=== PATIENT | female | born 1965 | race Caucasian/White ===

== ENCOUNTER 2021-01-04 14:48 | Emergency (ER) | payer BC, SELFPAY ==
[2021-01-04 16:17] VITALS: BP 168/77; PULSE 88; RESP 18; TEMP 36.8; O2SAT 99; BMI 34.1
--- NOTE | 2021-01-04 16:23 | HMH.EDUTC ---
[facility] [place] Disposition Clinical Impression: Exposure to COVID-19 virus Pharyngitis Qualifiers: Pharyngitis/tonsillitis etiology: unspecified etiology Qualified Code(s): J02.9 - Acute pharyngitis, unspecified Disposition: Home, Self-Care Condition on Discharge: Good Instructions: DI for Pharyngitis/Tonsillopharyngitis -- Adult, DI for COVID-19 (Suspected or Confirmed ), Preventing the Spread of Coronavirus Discharge Instructions Additional Instructions: Drink plenty of fluids. Take tylenol or ibuprofen for pain or fever. Take the medications as directed. Follow up with your regular doctor. GO TO THE ER FOR ANY WORSENING SYMPTOMS Quarantine until you know the results of your covid-19 test. If it is positive, the health department should call you and give you further instructions about your length of Quarantine and other thing. Prescriptions: Azithromycin [Z-Miles 250mg Tab*] 250 mg PO UD DOSE PK #6 tab Transmission Status: Received by [employer] #[id number] Referrals: Provider,Referral, [Primary Care Provider] - Time of Disposition: 16:37 Medical Decision Making - Medical Records Medical records reviewed: No: I reviewed the patient's medical records. - Montez Inquiry Pt receiving controlled substance: No Vital Signs: 01/04/21 16:17 01/04/21 16:43 Temperature 98.2 F 98.4 F Temperature Source Oral Pulse Rate 88 Pulse Rate [Left] 88 Respiratory Rate 18 18 Blood Pressure 160/79 H Blood Pressure [Right Arm] 168/77 H Blood Pressure Mean [Right Arm] 107 02 Sat by Pulse Oximetry 99 - Lab Data Lab results reviewed: Yes: I reviewed the patient's lab results. Lab Results 01/04/21 16:35: Strep Scn Rapid Clinic Negative Orders (Tests/Meds): ORDERS Category Date Time Status Strep Screen Confirmation Stat Micro 01/04/21 16:35 Received [facility] [place] HPI - General Stated complaint: sore throat,N[place]a Time Seen by Provider: 01/04/21 16:30 Mode of Arrival: Ambulatory Source of Information: Patient Limitations: No Limitations Description of Symptoms (Recalled from Triage Doc. by RN): pt c/o a sore throat and n/v. son has strep. has covid. HEENT Symptoms (Recalled from RN notes): Yes (sore throat) Resp Symptoms (Recalled from RN notes): No Skin Symptoms (Recalled from RN notes): No MS Symptoms (Recalled from RN notes): No Functional Status (Recalled from RN notes): na - History of Present Illness Provider Complaint: She states that she has been exposed to covid-19 and strep throat in her house. Her son has strep throat. Her has covid-19. She has had a sore throat on and off for the past 2 weeks. She denies any fever or chills. She has not been vaccinated against covid-19. - Related Data Previous Rx's Medication Instructions Recorded Azithromycin [Z-Miles 250mg Tab*] 250 mg PO UD DOSE PK #6 tab 01/04/21 Allergies Allergy/AdvReac Type Severity Reaction Status Date / Time INGREDIENT: NO KNOWN - NO Allergy Unknown Uncoded 05/07/17 15:17 KNOWN DRUG ALLERGY - Worker's Comp Is this a Worker's Comp case?: No H History - Hepatitis A Screen Drug use history?: No High risk sexual behaviors?: No History of sexually transmitted infection?: No Currently employed?: No Childcare worker?: No Do you have indoor plumbing?: Yes Do you have electricity?: Yes Attestation statement:: This patient has been screened for Hepatitis A risk factors. I have reviewed the patient's past medical history: Yes ROS Obtained: Yes All systems reviewed & no additional complaints - Constitutional Constitutional: Reports as per HPI - Eyes Eyes: Denies eye discharge - ENT Ears, Nose, Mouth, and Throat: Reports as per HPI - Cardiovascular Cardiovascular: Denies chest pain - Respiratory Respiratory: Denies chest congestion, Reports cough, Denies dyspnea, Denies wheezing Physical Exam - General General appearance: alert, in no apparent distress
[2021-01-04 16:36] LABS: UTC Strep Screen (Rapid) Negative (Negative)
[2021-01-04 16:43] VITALS: BP 160/79; PULSE 88; RESP 18; TEMP 36.9
--- NOTE | 2021-01-05 19:19 | PC.NURSE ---
notified of COVID positive result
== END 2021-01-04 16:44 | disposition home or self-care (01) ==
PROVIDERS: Emergency Provider Nurse Practitioner Family
DX: U07.1 COVID-19 (principal)
CPT/HCPCS: 87880; 99202; G0463; U0003

== ENCOUNTER → 2022-12-19 09:56 | Outpatient (CLI) | payer BC, SELFPAY ==
--- NOTE | 2022-12-19 10:01 | MM_ITS ---
PROCEDURE INFORMATION: Exam: MG Bilateral Screening 3D Mammography Exam date and time: 12/19/2022 9:58 AM Age: 57 years old Clinical indication: Screening examination. Maternal grandmother had breast cancer at age 80. TECHNIQUE: Imaging protocol: Bilateral Screening tomosynthesis and 2D mammography including computer-aided detection (CAD) when performed. COMPARISON: No relevant prior studies available. FINDINGS: MAMMOGRAPHY: Breast composition: The breasts are heterogeneously dense, which may obscure small masses. Mass: None. Architectural distortion: None. Calcifications: No suspicious calcifications. Asymmetric density: Questionable proximally 1.0 cm focal asymmetry in the left lower inner and 9 o'clock, anterior to middle 3rd. Skin thickening: None. Axillary adenopathy: None. IMPRESSION: Comparison to prior mammogram will be most helpful. If this is not provided within 2 weeks, patient will be recalled for left diagnostic mammography with spot compression in CC and MLO and left sonography for questionable left breast focal asymmetries. ASSESSMENT: BI-RADS Category 0: Incomplete- Need Additional Imaging Evaluation and/or Prior Mammograms for Comparison
== END ==
PROVIDERS: PCP Nurse Practitioner Family; Visit Provider Nurse Practitioner Family
DX: Z12.31 Encounter for screening mammogram for malignant neoplasm of breast (principal)
CPT/HCPCS: 77063; 77067

== ENCOUNTER 2023-01-20 09:13 | Emergency (ER) | payer BC, SELFPAY ==
[2023-01-20 09:20] VITALS: BP 151/76; PULSE 71; RESP 20; TEMP 36.8; O2SAT 99; BMI 28.7
[2023-01-20 09:29] VITALS: BP 151/76; PULSE 71; RESP 20; TEMP 36.8; O2SAT 99
--- NOTE | 2023-01-20 09:34 | EXP.UTC ---
Discharge Plan Disposition Patient Disposition: Home, Self-Care Prescriptions Prescriptions: New amoxicillin-pot clavulanate 875-125 mg Tablet 1 tab PO Q12H Qty: 20 0RF Referrals Follow up/Referrals: Sandy Barone APRN [Primary Care Provider] - See instructions Activity Restrictions/Add. Instructions Additional Instructions/Restrictions: Take all antibiotics as prescribed until gone Clinical Impressions Clinical Impression: Tonsillitis Instructions Patient Instructions: DI for Pharyngitis/Tonsillopharyngitis -- Adult Discharge ED Provider: Avis Castellon [facility] [place] HPI General Stated complaint: sore throat, congestion Mode of Arrival: Ambulatory Source of Information: Patient Limitations: No Limitations Time Seen by Provider: 01/20/23 09:34 Description of Symptoms (Recalled from Triage Doc. by RN): PATIENT C/O SORE THROAT AND CONGESTION THAT STARTED LAST NIGHT HEENT Symptoms (Recalled from RN notes): Yes Resp Symptoms (Recalled from RN notes): No Skin Symptoms (Recalled from RN notes): No MS Symptoms (Recalled from RN notes): No Functional Status (Recalled from RN notes): WNL History of Present Illness Provider Complaint: Sore throat, body aches since last night. No fever. Feels awful. Exposed to strep earlier this week. Onset (ago): day(s) (1) Relieving factors: none Exacerbating factors: none Associated symptoms: denies other symptoms Treatments prior to arrival: none Related Data Previous Rx's Medication Instructions Recorded amoxicillin 875 mg-potassium 1 tab PO Q12H #20 tabs 01/20/23 clavulanate 125 mg tablet Allergies Allergy/AdvReac Type Severity Reaction Status Date / Time adhesive Allergy Verified 01/20/23 09:26 latex Allergy Verified 01/20/23 09:26 Worker's Comp Is this a Worker's Comp case?: No [facility] Disclaimer: The information contained in this section may have been updated after the patient was seen, as this information can be updated by other users. Medical History (Updated 01/20/23 @ 09:42 by ALVINA Crow) Migraine Surgical History (Updated 01/20/23 @ 09:28 by Starr Yeh RN) History of appendectomy History of tubal ligation Social History Smoking Status: Never smoker alcohol intake: never current occupational status: employed Travel in the last 8 weeks: None ROS Obtained: Yes All systems reviewed & no additional complaints except as documented Constitutional Constitutional: Reports fatigue and Reports malaise ENT Ears, Nose, Mouth, and Throat: Reports sore throat Endocrine Endocrine: Reports fatigue Physical Exam General General appearance: alert and in no apparent distress Head Head exam: atraumatic, normocephalic and normal inspection Eye Eye exam: Present normal appearance, PERRL and EOMI ENT ENT exam: Present normal exam, normal oropharynx, mucous membranes moist, TM's normal bilaterally and normal external ear exam Expanded ENT Exam Throat exam: Present tonsillar erythema, tonsillomegaly and tonsillar exudate Neck Neck exam: Present normal inspection, full ROM and trachea midline; Absent meningismus or lymphadenopathy Chest Chest inspection: Present normal inspection and symmetric chest wall rise; Absent tenderness Respiratory Respiratory exam: Present normal lung sounds bilaterally; Absent respiratory distress Cardiovascular Cardiovascular exam: Present regular rate and normal rhythm; Absent JVD Extremities Exam Extremities exam: Present normal inspection, full ROM and normal capillary refill; Absent calf tenderness Neurological Exam Neurological exam: Present alert and oriented X3 Psychiatric Psychiatric exam: Present normal affect and normal mood Skin Skin exam: Present warm, dry, intact and normal color Lymphatic Lymphatic Findings: no adenopathy Medical Decision Making Montez Inquiry Pt receiving controlled substance: No Vital Signs: 01/20/23 09:20 01/20/23 09:29 Temperature
[2023-01-20 09:36] LABS: UTC Strep Screen (Rapid) Negative (Negative)
== END 2023-01-20 09:44 | disposition home or self-care (01) ==
PROVIDERS: Emergency Provider Physician Assistant; PCP Nurse Practitioner Family
DX: J03.90 Acute tonsillitis, unspecified (principal); R53.81 Other malaise
CPT/HCPCS: 87880; 99212; 99214; G0463

== ENCOUNTER → 2023-02-04 12:46 | Outpatient (CLI) | payer BC, SELFPAY ==
--- NOTE | 2023-02-04 13:00 | US_ITS ---
PROCEDURE INFORMATION: Exam: US Left Breast, Complete MG Left Diagnostic Breast Tomosynthesis Exam date and time: 02/04/2023 1:22 PM Age: 57 years old Clinical indication: Patient recalled on the basis of a screening mammogram 12/19/2022 for further evaluation of questionable of 1.0 cm focal asymmetry in the left lower inner quadrant, anterior to middle 3rd. TECHNIQUE: Imaging protocol: Complete ultrasound of all four quadrants of the left breast and the retroareolar regions, including ultrasound of the axilla when performed. Left Diagnostic tomosynthesis and 2D mammography including computer-aided detection (CAD) when performed. Unilateral or bilateral exam. COMPARISON: 1. MG MM DIG SCREENING MAMM BI W/CAD 12/19/2022 9:58 AM 2. US BREAST LT COMPLETE 02/04/2023 1:06 PM FINDINGS: MAMMOGRAPHY: Spot compression diagnostic images a demonstrated oval 1.0 cm mass in the central breast, along the retroareolar line in both CC and MLO, middle 3rd. ULTRASOUND: Left sonography, all 4 quadrants, retroareolar and axilla demonstrate at 10 o'clock 4 cm from the nipple, a complicated cyst with thin avascular septations measuring 0.8 x 0.7 x 0.3 cm. At 11 o'clock 2 cm from the nipple, oval hypoechoic avascular mass, which may be a complicated cyst, measuring 1.2 x 0.3 by 0.8 cm. At 11 o'clock 3 cm from the nipple, complicated cyst with thin avascular septations measuring 0.6 x 0.3 by 0.3 cm. Sonographically unremarkable axillary lymph node IMPRESSION: Probably benign mammographic mass which may correlate with the probably benign sonographic finding at 10 o'clock or 11 o'clock. Suggest six-month follow-up left diagnostic mammogram and targeted left sonography unless otherwise clinically indicated. ASSESSMENT: BI-RADS Category 3: Probably benign
== END ==
LOC: RAD 12:47
PROVIDERS: PCP Nurse Practitioner Family; Visit Provider Nurse Practitioner Family
DX: R92.8 Other abnormal and inconclusive findings on diagnostic imaging of breast (principal)
CPT/HCPCS: 76641; 77061; 77065; G0279

== ENCOUNTER 2023-06-01 14:40 | Emergency (ER) | payer BC, SELFPAY ==
[2023-06-01 15:05] VITALS: BP 160/91; PULSE 77; RESP 18; TEMP 36.8; O2SAT 99; BMI 52.2
[2023-06-01 15:10] VITALS: BP 165/76; PULSE 68; RESP 18; TEMP 36.7; O2SAT 98; BMI 27.2
[2023-06-01 15:19] LABS: UTC Strep Screen (Rapid) Negative (Negative)
--- NOTE | 2023-06-01 15:52 | EXP.UTC ---
Discharge Plan Disposition Patient Disposition: Home, Self-Care Condition: Good Prescriptions Prescriptions: New benzonatate 100 mg capsule 100 mg PO TID PRN (Reason: cough) Qty: 30 0RF Referrals Follow up/Referrals: Sandy Barone APRN [Primary Care Provider] - See instructions Activity Restrictions/Add. Instructions Additional Instructions/Restrictions: If symptoms persist or worsen follow up with primary care provider. Clinical Impressions Clinical Impression: Acute upper respiratory infection Instructions Patient Instructions: DI for Viral Upper Respiratory Infection -- Adult Discharge ED Provider: Carrie Kahn [facility] [place] HPI General Stated complaint: white spots on tonsils, st cough Mode of Arrival: Ambulatory Source of Information: Patient Limitations: No Limitations Time Seen by Provider: 06/01/23 15:48 Description of Symptoms (Recalled from Triage Doc. by RN): Pt's symptoms are cough and white spot in throat. HEENT Symptoms (Recalled from RN notes): Yes Resp Symptoms (Recalled from RN notes): No Skin Symptoms (Recalled from RN notes): No MS Symptoms (Recalled from RN notes): No Functional Status (Recalled from RN notes): n/a History of Present Illness Provider Complaint: Pt reports cough and sore throat with white spots on her throat, and runny nose. She has taken Mucinex for her symptoms. Related Data Previous Rx's Medication Instructions Recorded benzonatate 100 mg capsule 100 mg PO TID PRN cough #30 caps 06/01/23 Allergies Allergy/AdvReac Type Severity Reaction Status Date / Time adhesive Allergy Verified 06/01/23 15:32 latex Allergy Verified 06/01/23 15:32 Worker's Comp Is this a Worker's Comp case?: No [facility] Disclaimer: The information contained in this section may have been updated after the patient was seen, as this information can be updated by other users. Medical History (Updated 06/01/23 @ 16:05 by Carrie Kahn APRN) Migraine Surgical History History of appendectomy History of tubal ligation Social History Smoking Status: Never smoker alcohol intake: never current occupational status: employed Travel in the last 8 weeks: None ROS Obtained: Yes All systems reviewed & no additional complaints except as documented Constitutional Constitutional: Reports system reviewed and no additional complaints, except as documented and Reports headache(s) Eyes Eyes: Reports system reviewed and no additional complaints, except as documented ENT Ears, Nose, Mouth, and Throat: Reports system reviewed and no additional complaints, except as documented, Reports headache(s), Reports nasal congestion, Reports nasal discharge and Reports sore throat Cardiovascular Cardiovascular: Reports system reviewed and no additional complaints, except as documented Respiratory Respiratory: Reports system reviewed and no additional complaints, except as documented and Reports non-productive cough Gastrointestinal Gastrointestingal: Reports system reviewed and no additional complaints, except as documented Genitourinary Female Genitourinary: Reports system reviewed and no additional complaints, except as documented Musculoskeletal Musculoskeletal: Reports system reviewed and no additional complaints, except as documented Integumentary/Breasts Skin/Breast: Reports system reviewed and no additional complaints, except as documented Neurologic Neurologic: Reports system reviewed and no additional complaints, except as documented and Reports headache(s) Endocrine Endocrine: Reports system reviewed and no additional complaints, except as documented Hematologic/Lymphatic Henatologic/Lymphatic: Reports system reviewed and no additional complaints, except as documented Allergic/Immunologic Allergic/Immunologic: Reports system reviewed and no additional complaints, except as documented Physical Exam General General appearance: alert and in no apparent distress Head Head exam: atraumatic and normocephalic Eye Eye exam: Present normal appearance Expanded ENT Exam External ear exam: Present normal external inspection Nose exam: Absent sinus tenderness Nasal speculum exam: Bilateral: other (clear drainage) Mouth exam: Present normal external inspection Teeth exam: Present normal inspection Throat exam: Present tonsillar erythema Comment: Tonsil stones present Chest Chest inspection: Present normal inspection and symmetric chest wall rise Respiratory Respiratory exam: Present normal lung sounds bilaterally and respiratory distress Cardiovascular Cardiovascular exam: Present regular rate and normal rhythm Abdominal Exam Abdominal exam: Present soft Extremities Exam Extremities exam: Present normal inspection Back Exam Back exam: Present normal inspection Neurological Exam Neurological exam: Present alert and oriented X3 Psychiatric Psychiatric exam: Present normal affect and normal mood Skin Skin exam: Present warm, dry and intact Lymphatic Lymphatic Findings: no adenopathy Medical Decision Making Montez Inquiry Pt receiving controlled substance: No [facility]z was queried for this patient: No Vital Signs: 06/01/23 15:05 06/01/23 15:10 Temperature 98.2 F 98.1 F Temperature Source Oral Oral Pulse Rate [Right Radial] 77 68 Respiratory Rate 18 18 Blood Pressure [Right Arm] 160/91 H 165/76 H Blood Pressure Mean [Right Arm] 114 105 Blood Pressure Source [Right Arm] Automatic Cuff Automatic Cuff Blood Pressure Position [Right Arm] Sitting Sitting 02 Sat by Pulse Oximetry 99 98 Oxygen Delivery Method Room Air Room Air Lab Data Lab results reviewed: Yes I reviewed the patient's lab results. Lab Results 06/01/23 15:14: Strep Scn Rapid Clinic Negative Orders (Tests/Meds): ORDERS Category Date Time Status Strep Screen Confirmation Stat Micro 06/01/23 15:14 Received
[2023-06-01 16:07] VITALS: BP 165/76; PULSE 68; RESP 18; TEMP 36.7; O2SAT 98
== END 2023-06-01 16:07 | disposition home or self-care (01) ==
PROVIDERS: Emergency Provider Nurse Practitioner Family; PCP Nurse Practitioner Family
DX: R05.9 Cough, unspecified (principal); J06.9 Acute upper respiratory infection, unspecified; R07.0 Pain in throat; R09.81 Nasal congestion; R51.9 Headache, unspecified; B34.9 Viral infection, unspecified
CPT/HCPCS: 87880; 99212; 99214; G0463

== ENCOUNTER 2023-07-14 11:49 | Emergency (ER) | payer BC, SELFPAY ==
[2023-07-14 12:30] VITALS: BP 173/78; PULSE 83; RESP 18; TEMP 37.2; O2SAT 98; BMI 29.5
--- NOTE | 2023-07-14 12:31 | EXP.UTC ---
Discharge Plan Disposition Patient Disposition: Home, Self-Care Condition: Good Prescriptions Prescriptions: New amoxicillin [amoxicillin] 875 mg tablet 875 mg PO Q12H Qty: 20 0RF benzonatate [benzonatate] 100 mg capsule 100 mg PO TIDP PRN (Reason: Cough) Qty: 30 0RF methylprednisolone 4 mg Tablets,Dose Pack 4 mg PO DIRECTED 6 Days Qty: 21 0RF Rx Instructions: Take 1 pack as directed for 6 days No Action benzonatate 100 mg capsule 100 mg PO TID PRN (Reason: cough) Qty: 30 0RF Referrals Follow up/Referrals: Sandy Barone APRN [Primary Care Provider] - See instructions Activity Restrictions/Add. Instructions Additional Instructions/Restrictions: Drink plenty of fluids. Take tylenol or ibuprofen for pain or fever. Take the medications as directed. Follow up with your regular doctor. GO TO THE ER FOR ANY WORSENING SYMPTOMS Clinical Impressions Clinical Impression: Pharyngitis Stand Alone Forms Stand Alone Forms: Work/School Release Instructions Patient Instructions: Strep Throat, DI for Strep Throat Discharge ED Provider: Olegario Sanchez [facility] General Stated complaint: sore throat, cough Time Seen by Provider: 07/14/23 12:30 History of Present Illness Provider Complaint: She states that for the past 2 days she has had sore throat, fever, cough, and malaise. Related Data Previous Rx's Medication Instructions Recorded benzonatate 100 mg capsule 100 mg PO TID PRN cough #30 caps 06/01/23 amoxicillin 875 mg tablet 875 mg PO Q12H #20 tabs 07/14/23 benzonatate 100 mg capsule 100 mg PO TIDP PRN Cough #30 caps 07/14/23 methylprednisolone 4 mg tablets in 4 mg PO DIRECTED 6 days #21 tabs 07/14/23 a dose pack Allergies Allergy/AdvReac Type Severity Reaction Status Date / Time adhesive Allergy Verified 06/01/23 15:32 latex Allergy Verified 06/01/23 15:32 [facility] Disclaimer: The information contained in this section may have been updated after the patient was seen, as this information can be updated by other users. Medical History (Updated 07/14/23 @ 12:50 by Olegario Sanchez APRN) Migraine Surgical History History of appendectomy History of tubal ligation Social History Smoking Status: Never smoker alcohol intake: never current occupational status: employed Travel in the last 8 weeks: None ROS Obtained: Yes All systems reviewed & no additional complaints except as documented Constitutional Constitutional: Reports chills and Reports fever(s) Eyes Eyes: Denies eye discharge ENT Ears, Nose, Mouth, and Throat: Reports as per HPI Cardiovascular Cardiovascular: Denies chest pain Respiratory Respiratory: Denies chest congestion and Reports cough Gastrointestinal Gastrointestingal: Reports nausea; Denies abdominal pain, constipation, cramping, diarrhea or vomiting Musculoskeletal Musculoskeletal: Denies arthralgias Integumentary/Breasts Skin/Breast: Denies rash Neurologic Neurologic: Denies paresthesias Physical Exam General General appearance: alert and in no apparent distress Head Head exam: atraumatic, normocephalic and normal inspection Eye Eye exam: Present normal appearance, PERRL and EOMI ENT ENT exam: Present mucous membranes moist and normal external ear exam Expanded ENT Exam TM/Canal exam: Bilateral TM: erythema and bulging Nose exam: Absent sinus tenderness Mouth exam: Present normal external inspection; Absent drooling Teeth exam: Present normal inspection Throat exam: Present tonsillar erythema, tonsillomegaly and tonsillar exudate Neck Neck exam: Present normal inspection, full ROM and trachea midline; Absent tenderness, meningismus or lymphadenopathy Chest Chest inspection: Present normal inspection and symmetric chest wall rise; Absent tenderness Respiratory Respiratory exam: Present normal lung sounds bilaterally; Absent respiratory distress, wheezes, stridor or accessory muscle use Cardiovascular Cardiovascular exam: Present regular rate and normal rhythm; Absent systolic murmur or diastolic murmur Abdominal Exam Abdominal exam: Present soft and normal bowel sounds; Absent distention, tenderness, guarding, rebound or rigidity Extremities Exam Extremities exam: Present normal inspection and normal capillary refill; Absent calf tenderness Back Exam Back exam: Present normal inspection and full ROM; Absent tenderness, CVA tenderness (R) or CVA tenderness (L) Neurological Exam Neurological exam: Present alert, oriented X3 and CN II-XII intact Psychiatric Psychiatric exam: Present normal affect and normal mood Skin Skin exam: Present warm, dry, intact and normal color Medical Decision Making Medical Records Medical records reviewed: No I reviewed the patient's medical records. [place]z Inquiry Pt receiving controlled substance: No Lab Data Lab results reviewed: Yes I reviewed the patient's lab results.
[2023-07-14 12:56] LABS: UTC Strep Screen (Rapid) Positive (Negative)
[2023-07-14 13:17] VITALS: BP 173/78; PULSE 83; RESP 18; TEMP 37.2; O2SAT 98
== END 2023-07-14 13:17 | disposition home or self-care (01) ==
PROVIDERS: Emergency Provider Nurse Practitioner Family; PCP Nurse Practitioner Family
DX: J02.0 Streptococcal pharyngitis (principal); R07.0 Pain in throat; R50.9 Fever, unspecified; R05.9 Cough, unspecified
CPT/HCPCS: 87880; 99212; 99214; G0463

== ENCOUNTER 2023-08-14 15:50 | Outpatient (CLI) | payer BC, SELFPAY ==
--- NOTE | 2023-08-14 15:55 | MM_ITS ---
PROCEDURE INFORMATION: Exam: US Left Breast, Complete MG Left Diagnostic Breast Tomosynthesis Exam date and time: 08/14/2023 4:01 PM Age: 57 years old Clinical indication: Short-term radiographic followup; Left breast; mass and probable cystic change TECHNIQUE: Imaging protocol: Complete ultrasound of all four quadrants of the left breast and the retroareolar regions, including ultrasound of the axilla when performed. Left Diagnostic tomosynthesis and 2D mammography including computer-aided detection (CAD) when performed. Unilateral or bilateral exam. COMPARISON: US BREAST LT COMPLETE 02/04/2023 1:06 PM FINDINGS: MAMMOGRAPHY: Breast composition: There are scattered areas of fibroglandular density. Breast mammogram findings: Digital diagnostic spot compression views of the left breast and 90 degree lateral view of the left breast demonstrate normal overlapping fibroglandular structures without persistent mass or asymmetry identified. ULTRASOUND: Breast ultrasound findings: Sonographic images of the left breast including the retroareolar region, all 4 quadrants and the axilla do not demonstrate any solid masses. Stable subcentimeter cystic change in the 10 o'clock axis 4 cm from the nipple. Stable hypoechoic mass versus debris-filled cyst in the left 11 o'clock axis 6 cm from the nipple measuring 1.4 x 0.4 x 0.9 cm. Additional subcentimeter cystic change in the left 11 o'clock axis 3 cm from the nipple and 11 o'clock axis 4 cm from the nipple No architectural distortion or acoustical shadowing. No skin thickening or axillary adenopathy. IMPRESSION: No persistent left central breast mass on mammography. Stable probably benign hypoechoic mass in the left 11 o'clock axis 2 cm from the nipple compared to prior sonogram dated 02/04/2023. A six-month follow-up targeted left breast ultrasound is recommended for continued close surveillance. The patient is also due at that time for annual bilateral mammographic screening ASSESSMENT: BI-RADS Category 3: Probably benign.
== END 2023-08-14 23:59 ==
LOC: RAD 15:50
PROVIDERS: PCP Nurse Practitioner Family; Visit Provider Nurse Practitioner Family
DX: R92.8 Other abnormal and inconclusive findings on diagnostic imaging of breast (principal)
CPT/HCPCS: 76641; 77061; 77065; G0279

== ENCOUNTER 2024-03-17 15:30 | Outpatient (CLI) | payer BC, SELFPAY ==
--- NOTE | 2024-03-17 15:35 | US_ITS ---
PROCEDURE INFORMATION: Exam: US Left Breast, Complete MG Bilateral Screening 3D Mammography Exam date and time: 03/17/2024 3:29 PM Age: 58 years old Clinical indication: Screening and six-month follow-up sonography for probably benign mass on the left at 11 o'clock 2 cm from the nipple initiated 02/04/2023. Her maternal grandmother had breast cancer at age 80. TECHNIQUE: Imaging protocol: Complete ultrasound of all four quadrants of the left breast and the retroareolar regions, including ultrasound of the axilla when performed. Bilateral Screening tomosynthesis and 2D mammography including computer-aided detection (CAD) when performed. COMPARISON: MG MM DIG MAMM DX UNILAT LT CAD 08/14/2023 4:02 PM MG MM DIG MAMM DX UNILAT LT CAD 02/04/2023 1:22 PM MG MM DIG SCREENING MAMM BI W/CAD 12/19/2022 9:58 AM US BREAST LT COMPLETE 08/14/2023 4:01 PM US BREAST LT COMPLETE 02/04/2023 1:06 PM FINDINGS: MAMMOGRAPHY: Breast composition: There are scattered areas of fibroglandular density. Mass: Stable oval 1.0 cm mass in the central left breast middle 3rd, compared to 02/04/2023. Architectural distortion: None. Calcifications: No suspicious calcifications. Asymmetric density: None. Skin thickening: None. Axillary adenopathy: None. ULTRASOUND: Left sonography, all 4 quadrants, retroareolar and axilla demonstrates at 10 o'clock 6 cm from the nipple a complicated cyst with thin avascular septations measuring 0.8 x 0.6 x 0.3 cm which measured 0.8 x 0.7 x 0.3 cm on 02/04/2023. At 11 o'clock 6 cm from the nipple oval hypoechoic avascular mass measuring 0.8 x 0.9 x 0.4 cm which likely corresponds to the mass annotated at 11 o'clock 2 cm from the nipple on 02/04/2023 which measured 0.8 x 1.2 x 0.3 cm and annotated at 11 o'clock 6 cm from the nipple on 08/14/2023 and measured 0.9 x 1.5 x 0.4 cm. At 11 o'clock 3 cm from the nipple, avascular cluster of cysts measuring 0.5 x 0.4 x 0.2 cm which measured 0.5 x 0.4 x 0.3 cm on 02/04/2023. Unremarkable images of the axilla. IMPRESSION: No significant change in probably benign left mammographic mass and several probably benign left sonographic findings at 10 and 11 o'clock (the sonographic mass at 11 o'clock 6 cm from the nipple probably correlates to the mammographic mass), initiated 02/04/2023. Continued six-month follow-up left diagnostic mammography and sonography is recommended unless otherwise clinically indicated. No mammographic evidence of malignancy on the right. ASSESSMENT: BI-RADS Category 3: Probably benign.
== END 2024-03-17 23:59 | disposition home or self-care (01) ==
LOC: RAD 15:31
PROVIDERS: PCP Nurse Practitioner Family; Visit Provider Nurse Practitioner Family
DX: R92.8 Other abnormal and inconclusive findings on diagnostic imaging of breast (principal)
CPT/HCPCS: 76641; 77063; 77067

== ENCOUNTER 2024-04-20 15:55 | Emergency (ER) | payer BC, SELFPAY ==
[2024-04-20 17:00] VITALS: BP 184/73; PULSE 80; RESP 20; TEMP 36.9; O2SAT 97; BMI 26.5
--- NOTE | 2024-04-20 17:15 | ED_ITS ---
Discharge Plan Disposition Patient Disposition: Home, Self-Care Condition: Good Prescriptions Prescriptions: New methylprednisolone [Medrol (Miles)] 4 mg tablets,dose pack See Rx Instructions .Route .COMPLEX 6 Days Qty: 21 0RF Rx Instructions: taper pack; amoxicillin-pot clavulanate 875-125 mg Tablet 1 tab PO Q12H Qty: 20 0RF fluticasone propionate [Flonase Allergy Relief] 50 mcg/actuation spray,suspension 2 spray intranasal DAILY Qty: 16 0RF Rx Instructions: administer into each nostril daily Referrals Follow up/Referrals: Sandy Barone APRN [Primary Care Provider] - See instructions Activity Restrictions/Add. Instructions Additional Instructions/Restrictions: Monitor Temp, Over the counter Motrin or Tylenol as directed/as needed Tylenol every 4 hours and Motrin every 6 hours (as long as your family doctor has told you that you can take it) for fever or pain. and straight to ER if unable to lower temp less than 101.0 after medication given *Warm salt water gargles may help to soothe the throat *Throat Lozenges? *Warm fluids like tea with honey may help to soothe the throat? *Sleep elevated *Humidifier/Vaporizer *Flonase 2 sprays in each nostril daily but be aware that it may take 2-3 days before you notice improvement Take medication as prescribed Follow up IMMEDIATELY for new or worsening symptoms or no Noticeable improvement over the next 48-72 hours. 911 for difficulty breathing or swal lowing Clinical Impressions Clinical Impression: Sinusitis Instructions Patient Instructions: DI for Sinusitis, Sinusitis, Amoxicillin and Clavulanic Acid Print Language Print Language: Egyptian Discharge ED Provider: Caitlyn Klein [facility] [place] HPI General Stated complaint: tomasz, nausea Mode of Arrival: Ambulatory Source of Information: Patient Limitations: No Limitations Time Seen by Provider: 04/20/24 17:15 Description of Symptoms (Recalled from Triage Doc. by RN): PATIENT C/O EARS POPPING, NAUSEA, STOMACH ACHE, COUGH, AND RUNNY NOSE X 1 WEEK HEENT Symptoms (Recalled from RN notes): Yes Resp Symptoms (Recalled from RN notes): Yes Skin Symptoms (Recalled from RN notes): No MS Symptoms (Recalled from RN notes): No Functional Status (Recalled from RN notes): WNL History of Present Illness Provider Complaint: Patient states that she has been having sinus pain and pressure, popping and cracking in her ears, nausea from the drainage in the back of her throat and cough States today she yawned and her ears popped and hurt worried that she may have an ear infection so she came in to get checked Related Data Previous Rx's ?Medication ?Instructions ?Recorded amoxicillin 875 mg-potassium 1 tab PO Q12H #20 tabs 04/20/24 clavulanate 125 mg tablet fluticasone propionate 50 2 spray intranasal DAILY #16 grams 04/20/24 mcg/actuation nasal spray,suspension (Flonase Allergy Relief) methylprednisolone 4 mg tablets in See Rx Instructions .Route 04/20/24 a dose pack (Medrol (Miles)) .COMPLEX 6 days #21 tabs Allergies Allergy/AdvReac Type Severity Reaction Status Date / Time adhesive Allergy Verified 06/01/23 15:32 latex Allergy Verified 06/01/23 15:32 Worker's Comp Is this a Worker's Comp case?: No [facility] Disclaimer: The information contained in this section may have been updated after the patient was seen, as this information can be updated by other users. Medical History (Updated 04/20/24 @ 17:23 by Caitlyn Klein APRN) Migraine Surgical History History of tubal ligation History of appendectomy Social History Smoking Status: Never smoker alcohol intake: never current occupational status: employed Travel in the last 8 weeks: None ROS Obtained: Yes All systems reviewed & no additional complaints except as documented and Yes Systems reviewed as appropriate & no additional complaints except as documented Constitutional Constitutional: Reports system reviewed and no additional complaints, except as documented, Reports as per HPI and Reports headache(s) ENT Ears, Nose, Mouth, and Throat: Reports system reviewed and no additional complaints, except as documented, Reports as per HPI, Reports otalgia, Reports headache(s), Reports sinus pain and Reports sinus pressure Cardiovascular Cardiovascular: Reports system reviewed and no additional complaints, except as documented and Reports as per HPI Respiratory Respiratory: Reports system reviewed and no additional complaints, except as documented, Reports as per HPI and Reports cough Gastrointestinal Gastrointestingal: Reports system reviewed and no additional complaints, except as documented, as per HPI and nausea Genitourinary Female Genitourinary: Reports system reviewed and no additional complaints, except as documented and Reports as per HPI Neurologic Neurologic: Reports headache(s) Physical Exam General General appearance: alert and in no apparent distress ENT ENT exam: Present mucous membranes moist Expanded ENT Exam TM/Canal exam: Bilateral TM: bulging (mild redness noted in right) Nose exam: Present sinus tenderness Throat exam: Present other (Pharyngeal erythema noted with large tonsil stone noted on left) Respiratory Respiratory exam: Present normal lung sounds bilaterally; Absent respiratory distress or wheezes Cardiovascular Cardiovascular exam: Present regular rate, normal rhythm and normal heart sounds Neurological Exam Neurological exam: Present alert, oriented X3 and normal gait Medical Decision Making Medical Records Screening: Per USPSTF and CDC recommendations, given the prevalence of disease in our region, it is our hospital?s policy to screen for HIV and viral Hepatitis for al l patients aged 18 and over and those with ongoing risk factors. [place] Inquiry Pt receiving controlled substance: No [place] was queried for this patient: No Vital Signs: 04/20/24 17:00 Temperature 98.4 F Temperature Source Oral Pulse Rate [Left Brachial] 80 Respiratory Rate 20 Blood Pressure [Left Arm] 184/73 H Blood Pressure Mean [Left Arm] 110 Blood Pressure Source [Left Arm] Automatic Cuff Blood Pressure Position [Left Arm] Sitting 02 Sat by Pulse Oximetry 97 Oxygen Delivery Method Room Air
[2024-04-20 17:24] VITALS: BP 184/73; PULSE 80; RESP 20; TEMP 36.9; O2SAT 97
== END 2024-04-20 17:27 | disposition home or self-care (01) ==
PROVIDERS: Emergency Provider Nurse Practitioner; PCP Nurse Practitioner Family
DX: J32.9 Chronic sinusitis, unspecified (principal); R05.9 Cough, unspecified; R09.89 Other specified symptoms and signs involving the circulatory and respiratory systems; R11.0 Nausea; H92.03 Otalgia, bilateral
CPT/HCPCS: 99212; G0381